=== PATIENT | female | born 1955 | race Caucasian/White ===

== ENCOUNTER 2024-08-03 06:28 | Day surgery (SDC) | payer OTHER, MEDICARE ==
[2024-07-15 13:02] LABS: Absolute Eosinophils 0.2 K/uL (0-0.5); Absolute Lymphocytes (CBC) 1.8 K/uL (0.7-4.9); Absolute Monocytes 0.5 K/uL (0.1-1.3); Absolute Neutrophil 5.5 K/uL (1.8-8.0); Basophils % 0.5 % (0-1.3); Hematocrit 43.1 % (36.0-45.0); Hemoglobin 13.7 g/dL (12.0-15.0); Lymphocytes % 22.3 % (15.3-44.8); MCH 28.4 pg (27.0-35.0); MCHC 31.9 g/dL (32.0-36.0); MCV 89.1 fL (80-100); MPV 7.5 fL (7.6-11.3); Monocytes % 5.8 % (3.3-12.3); Neutrophils % 69.4 % (41.7-73.7); Platelets 280 thou/uL (152-406); RBC Red Blood Cell Count 4.83 M/uL (3.86-4.86); Red Cell Distribution Width 14.7 % (12.1-15.2)
[2024-07-15 13:14] LABS: Specific Gravity 1.015 (1.005-1.030); Sqamous Epithelial None Seen /HPF (None Seen); Urine Bacteria None Seen /HPF (<20); Urine Bilirubin NEGATIVE (Negative); Urine Blood Trace (Negative); Urine Clarity Clear (Clear); Urine Color Colorless (Yellow); Urine Culture Reflex Order NOT NEEDED; Urine Glucose NEGATIVE (Negative); Urine Ketones 1+ (Negative); Urine Microscopic Reflex YN ORDER UMIC; Urine Mucus Slight /HPF (None Seen); Urine Nitrite NEGATIVE (Negative); Urine Protein NEGATIVE (Negative); Urine RBC <5 /HPF (None Seen); Urine Urobilinogen Normal (Normal)
[2024-07-15 13:18] LABS: Anion Gap 5.7 mEq/L (5.0-15.0); Potassium 3.7 mEq/L (3.5-5.1)
--- NOTE | 2024-07-19 12:08 | EKG ---
Test Date: 2024-07-15 Test Time: 14:05:30 Weight Calculator: JORDON MEASUREMENT RESULTS: Intervals: Rate: 66 MO: 170 QRSD: 84 QT: 392 QTc: 410 Margaret: P: 74 MO: 170 QRS: 80 T: 77 INTERPRETIVE STATEMENTS: Normal sinus rhythm Normal ECG Compared to ECG 06/02/2018 11:46:39 No significant changes Electronically Signed On 07-19-24 12:03:17 GRAVEL INSPECTOR by Laureano Wright
[2024-08-03] MEDS ORDERED: dexAMETHasone 10 MG/ML VIAL ONE (06:55)
[2024-08-03] MEDS ORDERED: ROCURONIUM 50 MG/5 ML VIAL IV ONE (06:55)
[2024-08-03] MEDS ORDERED: FENTANYL CITR 250 MCG/5 ML ONE (06:55)
[2024-08-03] MEDS ORDERED: SCOPOLAMINE HYDROBROMIDE PATCH TD ONE (06:55)
[2024-08-03] MEDS ORDERED: propofoL 200 MG/20 ML VIAL IV ONE (06:55)
[2024-08-03] MEDS ORDERED: ONDANSETRON 4 MG/2 ML VIAL ONE (06:55)
[2024-08-03] MEDS ORDERED: LIDOCAINE 1% MPF 5 ML VIAL ONE (06:55)
[2024-08-03] MEDS ORDERED: MIDAZOLAM HCL 2 MG/2 ML INJ ONE (06:55)
[2024-08-03] MEDS ORDERED: KETAMINE HCL IN 0.9 % NACL 50 MG/5 ML SYRINGE IV ONE (06:55)
[2024-08-03] MEDS: Ringers Lactate 1,000 ML IV ONE (07:05)
[2024-08-03] MEDS: CEFAZOLIN SODIUM 2 GM/VIAL ONE (07:45)
[2024-08-03] MEDS ORDERED: EPHEDRINE SULF 50 MG/ML VIAL ONE (07:48)
[2024-08-03] MEDS: BUPIVACAINE 0.25% PF 30 ML VIAL ONE (08:10)
[2024-08-03] MEDS ORDERED: KETOROLAC 30 MG/ML INJ ONE (09:19)
[2024-08-03] MEDS ORDERED: Mastisol Adhesive Liq ONE (09:47)
[2024-08-03] MEDS: PROMETHAZINE INJ 25 MG/ML AMP ONE (11:06)
[2024-08-03 11:52] VITALS: BP 119/59; TEMP 97.1; O2SAT 98
--- NOTE | 2024-08-03 20:51 | OP ---
Date of Procedure: 08/03/2024 Surgeon: Alicia Selby MD Second Operator: Earline Garcia. Preoperative Diagnosis: Recurrent postmenopausal bleeding. Postoperative Diagnoses: Recurrent postmenopausal bleeding; endometriosis; uterine prolapse, stage I I. Procedures Performed: 1.Total laparoscopic hysterectomy. 2.Bilateral salpingo-oophorectomy. 3.Pelvic washings. 4.Uterosacral ligament suspension. 5.Colpopexy. 6.Cystoscopy. 7.Endometriosis excision was included with hysterectomy specimen. Anesthesia: General endotracheal. Estimated Blood Loss: 25 Urine Output: 100 Fluids: 1400 Specimens: Uterus, bilateral tubes and ovaries, endometriotic tissue included with serosa of the mes osalpinges and the tubes. Complications: No complications. Drains: No drains. Patient's Condition: Stable. Findings: Point C was at -1, and therefore uterosacral suspension was determined to be beneficial to prevent the wall prolapse. Cystoscopy showed patent ureters. No abnormal anatomy. Endometriosis was noted on the left cornual end of the tube, mesosalpinges on both sides, lateral montrell ewall on the right. All this was excised and removed with the serosa and included on the specimen. The vaginal cuff was closed with interrupted PDS 0 sutures x5, and uterosacral suspension performed w ith eight 2-0 PDS attaching uterosacral separately to the vaginal cuff and the anterior and posterior paz of the vagina. Indications: The patient is a 68-year-old presented with recurrent postmenopausal bleeding. Biopsie s at both times showed benign tissue endometrium. No atypia or malignancy was noted. On ultrasound, there is a suspicion of leiomyoma that is significant in size. No other adnexal masses were noted. Discussed about the alternatives of continued observation with ultrasound biopsies as needed when th e bleeding recurs more than a year apart or proceeding with hysterectomy, pelvic washings, bilateral salpingo-oophorectomy for risk reduction and for treatment of the bleeding. The patient wanted to pr oceed with definitive surgery and we consented her and she understood bleeding; infection; injury to the bowel, bladder, and ureters are complications that are closely associated with surgery, although infrequent and other anesthetic complications were all reviewed. She was brought to the hospital, re -consented, and questions and answers were done to the satisfaction of her and her . Then, rea hayes was taken back to the OR. Procedure In Detail: She was placed in supine fashion on the operating table. General anesthesia wa s given. Placed in a dorsal lithotomy position using Nilton stirrups. Arms tucked by the side. Abdo men was prepped with ChloraPrep; vulva, vagina, and perineum with Betadine and draped in a sterile fa shion. SCDs were started. Time-out was done. 2 g of Ancef was given and procedure started. Speculum was placed to expose the cervix. Anterior lip was grasped with single-tooth tenaculum. The cervix was down to -1. The anterior and posterior paz appeared to be mostly intact. Perineum int act. Therefore, uterosacral suspension after the hysterectomy was determined to be done. The cervix was dilated to 16-Fijian, and a large cup uterine manipulator was introduced and fixed in place. Walker was used to drain the bladder and attached to a gravity bag and this area was draped. 1 cm infraumbilical incision was made with scalpel. Using the open laparoscopy technique, fascia was incised, tagged with 0 Vicryl sutures. Peritoneum entered sharply. Ray introduced after adequat e insufflation. Site of entry was checked and was unremarkable. The liver, gallbladder, peritoneal surfaces were all checked, including the appendix and mostly unremarkable. There were some age-relat ed changes on the surface of the right hepatic lobe. No peritoneal implants of any considerable sort s were identified. A 10/12 suprapubic port and a 5 left lateral port were all placed under direct vi bozena. The patient was placed in Trendelenburg position and procedure started. Pelvic washings were first performed and handed out for cytology. Hysterectomy and endometriosis excision: The endometriosis lesions that were noted were first dissec phillip, so I started off on the pelvic peritoneum and superior to the round ligament, then dissected it laterally widely including the specimens up towards the IP ligament and in parallel lines to it. The medial leaf of the broad ligament was then dissected and opened up to create the pedicle. This was cauterized and cut with the help of the LigaSure. Then, posterior peritoneum was taken down to the p osterior uterosacral. The ureter was dissected laterally and identified to the level of the ureteric tunnel. The connective tissue and scar tissue were taken down exposing the posterior portion of the vessels and then anteriorly the peritoneum was opened up to get to the bladder, and the bladder was dissected inferiorly exposing the anterior vaginal wall. The vessels were identified both from the s uperior and inferior aspects at this point, so the medial cut was made to the vessels with a monopola r hook blade on the fascia in order for me to get my instrument in there for taking the vessels down. The uterine artery and vein were taken down with the help of the LigaSure. Then, cardinal ligament s were taken down with the same as well and monopolar hook blade was used to take rest of the cardina l ligaments. Uterosacral ligament area was also dissected, cauterized and cut on the left side. The suspension of the uterus was not optimal as this uterosacral did appear to be detached. On the opposite side, dissection of the endometriosis was conducted and mesosalpinx opened superior t o the round ligament and then parallel to the IP. The medial leaf of the broad ligament between the ureter and the IP was opened up, and the pedicle cauterized and cut with the LigaSure. Posterior per itoneum dissected all the way down to the posterior cuff and uterosacral just slightly attached on th e right side. The ureter was then dissected lateral away from the medial leaf of the broad ligament by taking down the connective tissue and if there were any implants of endometriosis, these were incl uded with the specimen. Then, the vessels were skeletonized by taking down the broad ligament vessel s and the uterine vessels were then isolated. The anterior bladder flap was connected and anterior v aginal wall was dissected. Then, the uterine vessels, artery, and vein were taken down with LigaSure and the cardinal ligaments were also taken down. Monopolar hook blade was used to perform a circumf erential colpotomy, and the specimen was detached and pulled out through the vagina. There was some bleeding at the right corner at the angles medial to the uterine vessels and this was cauterized with a fine-tipped bipolar. There was excellent hemostasis. Two simple angle sutures were placed with 0 PDS, three [id number] in the middle imbricating the cut ends, and closed in full thickness of the anterior and posterior paz in the uterosacral. The ureters were then identified from the pelvic brim to the ureteric tunnel, and they were significa ntly dissected away from the uterosacral ligaments. At this point, the uterosacral on the right side was prominent, so from lateral to medial a suture was taken with a 2-0 PDS and then attached through the posterior vaginal wall fascia and the anterior vaginal wall fascia, and tied down at 3 o'clock p osition. Then, in a similar fashion, there was a 2-0 PDS suture that was taken through the left uter osacral ligament that appeared to be detached and lifted up with a [id number]. Then, this was a nchored to the anterior and posterior vaginal paz of the closed cuff in full thickness and sutured in a kyjegf-wi-ekehy fashion in order for me to bring them together. Once this was tied down, there was excellent support reattachment and ureters were completely unremarkable. The pelvis was thorough ly irrigated and suctioned. Pedicles hemostatic. All the trocars were removed under direct vision. The patient was flattened out. Gas was desufflated. Fascia at the umbilicus was closed with 0 Vicr yl tag sutures, tied to each other after the port was removed and subcutaneous tissue brought togethe r with a simple 4-0 Monocryl suture, 2-0 PDS was used at the fascia in the suprapubic site in a figur e-of-eight fashion and all skin incisions interrupted 4-0 Monocryl. Cystoscopy was performed with a 17-Fijian sheath, 30-degree lens, and normal saline. There were exce llent jets of urine from both ureteric orifices. There appeared to be slightly cystic lesions on the trigone. Nothing clearly significant for an infection or any other process. Bladder was then drain ed. Vaginal occluder was removed. Instrument, needle, and sponge counts were correct at the end of the case. The patient tolerated the procedure well. She was recovered from anesthesia and taken to PACU in stable condition, and her was debriefed about her procedure. She will follow up in 1 week for pathology results and 4 weeks for vaginal cuff check. MAMADOU/COLIN Voice ID: [id number] Report ID: [id number]
== END 2024-08-03 11:32 | disposition home or self-care (01) ==
LOC: OR 06:28
PROVIDERS: ATTEND Obstetrics & Gynecology
PROC: 0UT24ZZ Resection of Bilateral Ovaries, Percutaneous Endoscopic Approach (ICD-10-PCS; 2024-08-03)
PROC: 0UT74ZZ Resection of Bilateral Fallopian Tubes, Percutaneous Endoscopic Approach (ICD-10-PCS; 2024-08-03)
PROC: 0USG0ZZ Reposition Vagina, Open Approach (ICD-10-PCS; 2024-08-03)
PROC: 0DBW4ZZ Excision of Peritoneum, Percutaneous Endoscopic Approach (ICD-10-PCS; 2024-08-03)
PROC: 0UT94ZZ Resection of Uterus, Percutaneous Endoscopic Approach (ICD-10-PCS; principal; 2024-08-03 07:30)
DX: N95.0 Postmenopausal bleeding (principal); N80.30 Endometriosis of pelvic peritoneum, unspecified; N88.8 Other specified noninflammatory disorders of cervix uteri; D25.9 Leiomyoma of uterus, unspecified; N83.8 Other noninflammatory disorders of ovary, fallopian tube and broad ligament
CPT/HCPCS: 93005; 85025; 81001; 80048; 36415; 86900; 88108; 86850; 86901; 88305; 88307; 58571; 57283; 58662; J2550; J2704; J2003; J2250; J3010; J1100; J2405; J7120